=== PATIENT | female | born 1970 | race Asian ===

== ENCOUNTER 2018-02-16 23:54 | Emergency (ER) | payer OTHER ==
[~2018-02-16] VITALS: Ht 157.5 cm; Wt 65.9 kg
[2018-02-17] MEDS ORDERED: METOCLOPRAMIDE HCL 5 MG TABLET PO ONE (01:15)
[2018-02-17 02:14] VITALS: BP 150/91
== END 2018-02-17 03:40 | disposition home or self-care (01) ==
LOC: EMS 23:56
DX: R51 Headache (principal); R03.0 Elevated blood-pressure reading, without diagnosis of hypertension; Z88.1 Allergy status to other antibiotic agents
CPT/HCPCS: 70450; 93005